=== PATIENT | female | born 1940 | race Hispanic/Latino ===

== ENCOUNTER 2024-05-15 09:38 | Emergency (ER) | payer MEDICARE, OTHER ==
[~2024-05-15] VITALS: Ht 154.9 cm; Wt 68.0 kg
[2024-05-15 09:40] VITALS: TEMP 98.3
[2024-05-15 10:25] LABS: BASOPHILS # (AUTO) 0.06 K/uL (0.00-0.20); BASOPHILS % (AUTO) 0.8 % (0.0-5.0); EOSINOPHILS # (AUTO) 0.28 K/uL (0.00-0.70); EOSINOPHILS % (AUTO) 3.8 % (0.0-8.0); HEMATOCRIT 32.6 % (36-48); IMMATURE GRANULOCYTE ABSOLUTE 0.02 K/uL (0-1); LYMPHOCYTES # (AUTO) 1.6 K/uL (1.0-4.8); MEAN CORPUSCULAR HEMOGLOBIN 29.5 pg (27.0-33.0); MEAN CORPUSCULAR HGB CONC 33.7 g/dL (32.0-36.0); MEAN CORPUSCULAR VOLUME 87.4 fL (79-99); MONOCYTES # (AUTO) 0.8 K/uL (0.1-1.0); MONOCYTES % (AUTO) 10.4 % (3.0-13.0); NEUTROPHILS # (AUTO) 4.7 K/uL (1.8-7.7); NEUTROPHILS % (AUTO) 62.7 % (40.0-77.0); PLATELET COUNT (AUTO) 269 K/uL (130-400); RED BLOOD CELL COUNT(AUTO) 3.73 MIL/uL (4.00-5.50); RED CELL DISTRIBUTION WIDTH 12.2 % (11.0-15.5); WHITE BLOOD COUNT (AUTO) 7.4 K/uL (4.8-10.8)
[2024-05-15 10:34] LABS: APPEARANCE,URINE CLEAR (CLEAR); BILIRUBIN,URINE NEGATIVE (NEGATIVE); COLOR,URINE LIGHT-YELLOW (YELLOW); CREATININE 1.1 mg/dL (0.5-1.0); GLUCOSE, URINE (UA) NEGATIVE (NEGATIVE); KETONES,URINE NEGATIVE (NEGATIVE); LEUKOCYTE ESTERASE ,URINE 75 Leu/uL (NEGATIVE); NITRATE,URINE NEGATIVE (NEGATIVE); OCCULT BLOOD,URINE SMALL (NEGATIVE); POTASSIUM 3.9 mmol/L (3.5-5.1); PROTEIN,URINE NEGATIVE (NEGATIVE); UROBILINOGEN,URINE 0.2 mg/dL (0.2-1.0)
[2024-05-15 11:16] LABS: MUCUS,URINE RARE LPF (None Seen); RBC,URINE 0-1 /HPF (0-1); SQUAMOUS EPITHELIAL CELL,UR MOD /HPF (0-2)
[2024-05-15 12:31] VITALS: BP 152/75; PULSE 73; RESP 17; O2SAT 97
== END 2024-05-15 12:33 | disposition home or self-care (01) ==
LOC: EDH 09:38
DX: K64.4 Residual hemorrhoidal skin tags (principal); R10.32 Left lower quadrant pain; R19.7 Diarrhea, unspecified; E78.00 Pure hypercholesterolemia, unspecified; I10 Essential (primary) hypertension; Z86.73 Personal history of transient ischemic attack (TIA), and cerebral infarction without residual deficits
CPT/HCPCS: 36415; 74176; 80048; 81001; 85025; 87086

== ENCOUNTER 2025-01-21 15:56 | Emergency (ER) | payer MEDICARE ==
[~2025-01-21] VITALS: Ht 152.4 cm; Wt 66.7 kg
[2025-01-21 16:29] LABS: BASOPHILS # (AUTO) 0.06 K/uL (0.00-0.20); BASOPHILS % (AUTO) 0.9 % (0.0-5.0); EOSINOPHILS # (AUTO) 0.27 K/uL (0.00-0.70); EOSINOPHILS % (AUTO) 3.9 % (0.0-8.0); HEMATOCRIT 27.1 % (36-48); IMMATURE GRANULOCYTE ABSOLUTE 0.02 K/uL (0-1); LYMPHOCYTES # (AUTO) 1.4 K/uL (1.0-4.8); MEAN CORPUSCULAR HEMOGLOBIN 22.4 pg (27.0-33.0); MEAN CORPUSCULAR HGB CONC 30.6 g/dL (32.0-36.0); MEAN CORPUSCULAR VOLUME 73.2 fL (79-99); MONOCYTES # (AUTO) 0.7 K/uL (0.1-1.0); MONOCYTES % (AUTO) 10.6 % (3.0-13.0); NEUTROPHILS # (AUTO) 4.4 K/uL (1.8-7.7); NEUTROPHILS % (AUTO) 64.3 % (40.0-77.0); PLATELET COUNT (AUTO) 299 K/uL (130-400); WHITE BLOOD COUNT (AUTO) 6.9 K/uL (4.8-10.8)
[2025-01-21 16:38] LABS: CREATININE 0.9 mg/dL (0.5-1.0); POTASSIUM 4.1 mmol/L (3.5-5.1)
[2025-01-21 16:47] LABS: ALBUMIN 3.5 g/dL (3.5-5.0); BILIRUBIN,DIRECT 0.1 mg/dL (0.0-0.3); BILIRUBIN,TOTAL 0.4 mg/dL (0.2-1.0); TOTAL PROTEIN, SERUM 6.9 g/dL (6.0-8.3)
[2025-01-21 17:43] LABS: APPEARANCE,URINE CLEAR (CLEAR); BILIRUBIN,URINE NEGATIVE (NEGATIVE); COLOR,URINE LIGHT-YELLOW (YELLOW); GLUCOSE, URINE (UA) NEGATIVE (NEGATIVE); KETONES,URINE NEGATIVE (NEGATIVE); LEUKOCYTE ESTERASE ,URINE 75 Leu/uL (NEGATIVE); NITRATE,URINE NEGATIVE (NEGATIVE); OCCULT BLOOD,URINE NEGATIVE (NEGATIVE); PH,URINE 5.5 (5.0-8.0); PROTEIN,URINE NEGATIVE (NEGATIVE); UROBILINOGEN,URINE 0.2 mg/dL (0.2-1.0)
[2025-01-21 17:54] LABS: ADD UA MICROSCOPIC YES
[2025-01-21 18:02] LABS: MUCUS,URINE RARE LPF (None Seen); RBC,URINE 0-1 /HPF (0-1); SQUAMOUS EPITHELIAL CELL,UR RARE /HPF (0-2)
[2025-01-21] MEDS ORDERED: IOHEXOL 350 MG/ML 100ML INFUS..BTL IV ONE (18:06)
[2025-01-21] MEDS: LACTATED RINGERS 1000ML 1,000 ML IV ONE (18:34)
--- NOTE | 2025-01-21 18:35 | HMCIMG ---
Exam Type: CT ABDOMEN/PELVIS W/CONTRAST Clinical Information: Abdominal Pain Comparison: None Contrast: 100 cc's Isovue 370 IV, no complications or adverse reactions CT Dose Index (CTDI): 31.60 mGy Dose Length Product (DLP): 1740.80 total mGy-cm Findings: No evidence of nephro or ureterolithiasis is found. No hydronephrosis or ureteral dilatation is seen. The lung bases are clear. The stomach is unremarkable. It shows no wall thickening. No gross ulceration is seen. It is not overly distended. There are no surrounding inflammatory changes. No wall lesions are identified to suggest cancer. The spleen is unremarkable. It is not enlarged. The pancreas shows normal anatomy. It is not fatty replaced. It shows no lesions. The pancreatic duct is not dilated. The gallbladder is unremarkable. It shows no cholelithiasis. The gallbladder wall is normal in thickness. There is no pericholecystic fluid. The is no acute or chronic inflammation noted. The adrenal glands are unremarkable. There is no enlargement. No lesions are noted. The liver is unremarkable. It shows no focal masses. The appendix is unremarkable. It shows no evidence of inflammation. No appendicolith is seen. Umbilical hernia is seen containing a single loop of small bowel, without incarceration or strangulation. The small bowel is otherwise unremarkable. The colon is unremarkable. The urinary bladder is unremarkable. There is no wall thickening to suggest tumor or inflammation. There are no intraluminal calculi. There are no diverticula. There is no evidence of chronic bladder outlet obstruction. There is no evidence of urinary bladder distention to suggest urinary retention. The other pelvic structures are unremarkable. The bony and vascular structures are unremarkable for the patient's age. IMPRESSION: Umbilical hernia is seen containing a single loop of small bowel, without incarceration or strangulation. This study was performed using dose reduction techniques to include automated exposure control and/or adjustment of the mA and/or kV according to patient size.
--- NOTE | 2025-01-21 19:02 | ERN ---
General Chief Complaint: Abdominal Pain Stated Complaint: DIARRHEA X2DAYS, ABD PAIN Time Seen by MD: 15:58 History of Present Illness Initial Comments 84-year-old female presents for loose stools and generalized abdominal discomfort. Patient reports that over the last two days she has had 4-5 episodes in total of loose stools. She denies any blood or watery stool. She reports mild nausea, although she is p.o. tolerant. She is drinking liquids. She reports some generalized abdominal cramping but no cindy tenderness. No urinary symptoms. No cough congestion or respiratory symptoms. Allergies: Coded Allergies: No Known Allergies (Unverified Allergy, Unknown, 05/15/24) Past Medical History Past Medical History: Diverticulitis, GI Bleed, High Cholesterol, Hypertension, TIA Medical History Other: HEMORRHOIDS Past Surgical History: Other Surgical History Other: HERNIA ROS Dictation CONSTITUTIONAL: No chills, no fever, no weakness, no diaphoresis, no malaise. HEAD/FACE: No signs of trauma. EENT: No eye pain, no blurred vision, no tearing, no double vision, no ear pain, no ear discharge, no nose pain, no nasal congestion, no throat pain, no throat swelling, no mouth pain. RESPIRATORY: No cough, no orthopnea, no SOB, no stridor, no wheezing. CARDIOVASCULAR: No chest pain, no edema, no palpitations, no syncope. GASTROINTESTINAL/ABDOMINAL: Diarrhea GENITOURINARY: No abnormal discharge, no dysuria, no frequent urination, no hematuria. No complaints of pain in the genitals. MUSCULOSKELETAL: No back pain, no gout, no joint pain, no joint swelling, no muscle pain, no muscle stiffness, no neck pain. INTEGUMENTARY: No change in color, no change in hair/nails, no dryness, no lesion, no lumps, no rash. NEUROLOGICAL/PSYCH: No anxiety, not depressed, no emotional problem, no headache, no numbness, no pre-existing deficit, no history of seizures, no tremors, no weakness. HEMATOLOGIC/LYMPHATIC: Not anemic, no history of blood clots, no apparent bleeding, no bruising, glands not swollen. All Systems Negative, Except as Noted. As Physical Exam Physical Exam Dictation VITAL SIGNS: Reviewed. GENERAL APPEARANCE: Alert, oriented x3, no acute distress. HEAD AND FACE: Non-traumatic. EYES: PERRL, pink conjunctivas, eyelid no trauma, anterior chamber clear. EARS: Pinnas intact and no signs of trauma or erythema. Ear canals clear and no discharge. TMs no erythema. NOSE: No discharge, no bleeding. OROPHARYNX: Mouth normal, teeth no caries, tongue pink. Pharynx clear, no erythema. Tonsils no exudates, no abscesses noted. Mucous membrane moist. NECK: Supple, non-tender, no thyromegaly, no masses, no JVD, no bruits. BREAST: Deferred. CHEST: No tenderness, no crepitus, no paradoxical movement, no retractions. LUNGS: Clear, well-ventilated, symmetric, no rales, no wheezing, no rhonchi, no stridor, good breath sounds bilaterally. HEART: Regular rate, regular rhythm, no murmur, no gallops. VASCULAR: No peripheral edema. ABDOMEN: Soft, positive bowel sounds, nondistended, no guarding, nontender, no rebound, no masses no hepatomegaly, no splenomegaly, no Archer's sign, no hernias. RECTAL: Deferred. GENITAL: Deferred. NEUROLOGICAL: Normal speech, gross motor function intact, gross sensory function intact. MUSCULOSKELETAL: Neck nontender, full range of motion, back nontender, full range of motion. EXTREMITIES: Nontender, full range of motion. SKIN: Color pink, dry, no turgor, no rash, no lacerations, no abrasions, no contusions. LYMPHATICS: Deferred. Results Laboratory and Microbiology Lab and Micro Result Laboratory Tests Test 01/21/25 16:20 01/21/25 17:12 White Blood Count 6.9 K/uL (4.8-10.8) Red Blood Count 3.70 MIL/uL (4.00-5.50) L Hemoglobin 8.3 g/dL (12.0-16.0) L Hematocrit 27.1 % (36-48) L Mean Corpuscular Volume 73.2 fL (79-99) L Mean Corpuscular Hemoglobin 22.4 pg (27.0-33.0) L Mean Corpuscular Hemoglobin Concent 30.6 g/dL (32.0-36.0) L Red Cell Distribution Width 17.0 % (11.0-15.5) H Platelet Count 299 K/uL (130-400) Mean Platelet Volume 10.1 fL (7.5-10.5) Immature Granulocyte % (Auto) 0.3 % (0-1) Neutrophils (%) (Auto) 64.3 % (40.0-77.0) Lymphocytes (%) (Auto) 20.0 % (21.0-51.0) L Monocytes (%) (Auto) 10.6 % (3.0-13.0) Eosinophils (%) (Auto) 3.9 % (0.0-8.0) Basophils (%) (Auto) 0.9 % (0.0-5.0) Neutrophils # (Auto) 4.4 K/uL (1.8-7.7) Lymphocytes # (Auto) 1.4 K/uL (1.0-4.8) Monocytes # (Auto) 0.7 K/uL (0.1-1.0) Eosinophils # (Auto) 0.27 K/uL (0.00-0.70) Basophils # (Auto) 0.06 K/uL (0.00-0.20) Absolute Immature Granulocyte (auto 0.02 K/uL (0-1) Nucleated Red Blood Cells 0.0 % (0.0-0.19) Red Blood Cell Morphology See comments Sodium Level 140 mmol/L (136-145) Potassium Level 4.1 mmol/L (3.5-5.1) Chloride Level 105 mmol/L (101-111) Carbon Dioxide Level 27 mmol/L (21-32) Blood Urea Nitrogen 23 mg/dL (7-18) H Creatinine 0.9 mg/dL (0.5-1.0) Glomerular Filtration Rate Calc 63 mL/min (>90) Random Glucose 105 mg/dL (70-105) Total Calcium 8.7 mg/dL (8.5-10.1) Total Bilirubin 0.4 mg/dL (0.2-1.0) Direct Bilirubin 0.1 mg/dL (0.0-0.3) Aspartate Amino Transf (AST/SGOT) 17 U/L (10-37) Alanine Aminotransferase (ALT/SGPT) 17 U/L (12-78) Alkaline Phosphatase 66 U/L (50-136) Total Creatine Kinase 88 U/L (21-232) Troponin I High Sensitivity 6 ng/L (4-50) Total Protein 6.9 g/dL (6.0-8.3) Albumin 3.5 g/dL (3.5-5.0) Lipase 55 U/L (16-77) Urine Color LIGHT-YELLOW (YELLOW) Urine Appearance CLEAR (CLEAR) Urine pH 5.5 (5.0-8.0) Urine Specific [place] 1.009 (1.001-1.031) Urine Protein NEGATIVE mg/dL (NEGATIVE) Urine Glucose (UA) NEGATIVE mg/dL (NEGATIVE) Urine Ketones NEGATIVE mg/dL (NEGATIVE) Urine Occult Blood NEGATIVE (NEGATIVE) Urine Nitrate NEGATIVE (NEGATIVE) Urine Bilirubin NEGATIVE mg/dL (NEGATIVE) Urine Urobilinogen 0.2 mg/dL (0.2-1.0) Urine Leukocyte Esterase 75 [place]/uL (NEGATIVE) H Urine RBC 0-1 /HPF (0-1) Urine WBC 2-5 /HPF (0-1) H Urine Squamous Epithelial Cells RARE /HPF (0-2) Urine Bacteria None /HPF (None Seen) MDM CC: Diarrhea, abdominal cramping Historian: Patient Comorbidities: Advanced age, history of diverticulitis, history of GI bleed, dyslipidemia, hypertension, TIA Limitations by social determinants of health: None Differential diagnosis: Prior numbness, electrolyte abnormality, dehydration, diverticulitis, surgical pathology, gastroenteritis, other. Labs (independently ordered and interpreted by me): No leukocytosis. Hemog lobin 8.3, microcytic. Slightly lower than previous, with the patient reports to me that she has had anemia recently and has been worked up as an outpatient. The metabolic panel is unremarkable. Liver enzymes stable. Lipase stable. CK is stable. Troponin stable. CT scan of the abdomen and pelvis independently interpreted by me shows no acute pathology. Radiology read and that has no dangerous findings. Patient received IV fluids in the ER I did consider admission for this patient. I offered admission for IV fluid rehydration and possibly GI consultation. Family reports that this time the patient is feels fine, she has stable vital signs she is p.o. tolerant nontoxic in appearance with stable labs. They prefer to workup as an outpatient. They have an appointment ED Course Orders Procedure Category Date Status Time Cbc With Differential LAB 01/21/25 Complete 16:14 Troponin I High LAB 01/21/25 Complete Sensitivity 16:14 Urinalysis Profile LAB 01/21/25 Complete 16:14 Ct Abdomen/Pelvis CT 01/21/25 Resulted W/Contrast 16:14 Creatine Kinase, Total LAB 01/21/25 Complete 16:14 Lipase LAB 01/21/25 Complete 16:14 Basic Metabolic Panel LAB 01/21/25 Complete 16:14 Hepatic Function Panel LAB 01/21/25 Complete 16:14 Lactated Ringers PHA 01/21/25 Complete 1000ml (Lactated 18:00 Culture Urine KAI 01/21/25 In Process 17:55 Iohexol (Omnipaque) PHA 01/21/25 Complete 18:06 Current Medications Medications (Trade) Dose Ordered Sig/Kerri Route PRN Reason Start Time Stop Time Status Last Admin Dose Admin Iohexol (Omnipaque) 35,000 mg STK-MED ONCE IV 01/21/25 18:06 01/21/25 18:07 DC Lactated Ringer's 1,000 ml @ 0 mls/hr ONCE ONCE IV 01/21/25 18:00 01/21/25 18:12 DC 01/21/25 18:34 Vital Signs Date Time Temp Pulse Resp B/P (MAP) Pulse Ox O2 Delivery O2 Flow Rate FiO2 01/21/25 18:53 98.4 64 16 155/62 97 Room Air* 0 21 01/21/25 17:40 98.4 64 16 150/57 97 Room Air* 0 21 01/21/25 16:31 64 16 158/62 97 Room Air* 0 21 01/21/25 16:02 98.4 72 16 167/75 97 Room Air 0 DX & DISP Disposition: Discharge Departure Impression: Primary Impression: Diarrhea Additional Impressions: Mild dehydration, Microcytic anemia Condition: Stable Additional Instructions: As we discussed, there are no dangerous findings on your workup here today. Your vital signs has been stable in the emergency department. Your lab work (CBC with differential, basic metabolic panel, liver enzymes, CK, troponin, lipase, urinalysis) shows some mild dehydration and anemia. Your hemoglobin is 8.3, with an MCV of 73.2. This appears to be an iron deficiency anemia, but I do recommend that you discuss with your primary doctor these findings. You may need to repeat a hemoglobin level within 3-[address] scan of your abdomen and pelvis with contrast does not show any dangerous findings. You do have a small umbilical hernia which does not appear to be causing any symptoms at this time. There are no signs of infection or surgical abnormalities. Regarding the diarrhea, be sure to drink plenty of liquids. An electrolyte solution such as Gatorade has a good choice. Start with bananas (you can also try rice, applesauce, toast). If you are able to tolerate this food, you can advance her diet slowly as tolerated. I recommend foods with plenty of nutrition. Avoid processed foods. Try foods high in fiber. As we discussed, I recommend avoiding Imodium, which is an antidiarrheal medication, unless absolutely necessary. As we discussed, if you have significant abdominal tenderness, fevers, blood in your stool, signs of dehydration, diarrhea for longer than five days, or any other concerning symptoms, please return to the emergency department. Otherwise, please follow up with your primary doctor. Referrals: JAI REYES MD (PCP) SANDOR PALENCIA DO Jan 21, 2025 19:02
[2025-01-21 19:51] VITALS: BP 152/59; PULSE 64; RESP 16; TEMP 98.4; O2SAT 97
== END 2025-01-21 19:58 | disposition home or self-care (01) ==
LOC: EDH 15:56
DX: R19.7 Diarrhea, unspecified (principal); E86.0 Dehydration; D50.9 Iron deficiency anemia, unspecified; E78.00 Pure hypercholesterolemia, unspecified; I10 Essential (primary) hypertension; Z86.73 Personal history of transient ischemic attack (TIA), and cerebral infarction without residual deficits
CPT/HCPCS: 99285; 74177; 82550; 80076; 84484; 80048; 83690; 85025; 87086; 81001; 36415; J7120; Q9967